=== PATIENT | male | born 1970 | race Caucasian/White ===

== ENCOUNTER 2021-06-26 14:06 | Emergency (ER) | payer OTHER ==
[~2021-06-26] VITALS: Ht 170.2 cm; Wt 82.0 kg
[~2021-06-26 14:06] MED LIST: CEPHALEXIN500 MG OR; CIPRODEX1 ML OT; CLINDAMYCIN150 MG PO; CLOTRIMAZOLE/BETAME1 EX; FLEXERIL PO; HYDROXYZ HCL25 MG PO; KURIC2 % EX; LISINOPRIL10 MG PO; NAPROSYN500 MG PO; NASONEX50 MCG/AC; NEXIUM20 M1 PO; NIZORAL2 % EX; OMEPRAZOLE40 MG PO; PRILOSEC20 MG PO; SINGULAIR PO; SINGULAIR10 MG PO; SOLU-MEDROL125 MG IM; ULTRAVATE0.051 EX; ZITHROMAX250 MG PO; ZITHROMAX500 MG PO; ZYRTEC10 M2 PO
[2021-06-26 14:56] LABS: HEMATOCRIT 50.3 % (39.0-50.0); HEMOGLOBIN 16.8 g/dl (14.0-18.0); IMMATURE GRANULOCYTES 0.8 % (0.0-5.0); MEAN CELL VOLUME 91.8 fL CALC (80.0-100.0); MEAN CORPUSCULAR HGB 30.7 pG CALC (26.0-32.0); MEAN CORPUSCULAR HGB CONC 33.4 g/dL CAL (32.0-36.0); NEUT# 5.58 thou/uL (1.82-7.42); RED BLOOD COUNT 5.48 mill/uL (4.70-6.10); RED CELL DISTRI WIDTH 11.8 % (11.5-15.5)
[2021-06-26 15:14] LABS: ALBUMIN 4.6 g/dL (3.2-5.0); ALKALINE PHOSPHATASE 84 u/l (38-126); AMYLASE 82 u/l (30-110); ANION GAP 16 (6-22 (CALC)); BILIRUBIN, TOTAL 0.8 mg/dL (0.0-1.4); BUN 23 mg/dL (9-20); BUN/CREATININE RATIO 25 (12-20 (CALC)); CARBON DIOXIDE 27 mmol/l (22-30); CHLORIDE 99 mmol/l (95-108); CREATININE 0.9 mg/dL (0.7-1.3); GFR > 60 ML/MIN (>=60 (CALC)); GFR FOR AFR.AMER. > 60 ML/MIN (>=60 (CALC)); LIPASE 65 u/l (23-300); POTASSIUM 4.1 mmol/l (3.5-5.1); SGOT/AST 37 u/l (17-59); SODIUM 139 mmol/l (137-146); TOTAL PROTEIN 7.9 g/dL (6.3-8.2)
[2021-06-26 16:11] LABS: URINE BILIRUBIN - DIPSTICK NEGATIVE (NEGATIVE); URINE BLOOD DIPSTICK NEGATIVE (NEGATIVE); URINE COLOR YELLOW; URINE GLUCOSE - DIPSTICK NEGATIVE (NEGATIVE); URINE KETONE NEGATIVE (NEGATIVE); URINE LEUK ESTERASE NEGATIVE (NEGATIVE); URINE PROTEIN - DIPSTICK NEGATIVE (NEG-TRACE); URINE SPECIFIC GRAVITY >=1.030; URINE UROBILINOGEN - DIPSTICK 0.2 E.U./dL (0.2)
[2021-06-26 16:14] LABS: URINE NITRITE - DIPSTICK NEGATIVE (Negative)
[2021-06-26] MEDS ORDERED: METRONIDAZOLE500 MG PO ×2 (17:09→17:18)
[2021-06-26] MEDS ORDERED: CIPROFLOXACN500 MG PO ×2 (17:09→17:18)
[2021-06-26 17:11] VITALS: BP 127/62
== END 2021-06-26 17:11 | disposition home or self-care (01) | DRG 392 ==
LOC: ED 14:06
PROVIDERS: Emergency Medicine
DX: R10.30 Lower abdominal pain, unspecified (principal); K62.5 Hemorrhage of anus and rectum; I10 Essential (primary) hypertension
CPT/HCPCS: Q9967

== ENCOUNTER 2021-08-16 08:26 | Day surgery (SDC) | payer OTHER ==
[~2021-08-16] VITALS: Ht 172.7 cm; Wt 81.6 kg
[~2021-08-16 08:26] MED LIST changes: +CIPROFLOXACN500 MG PO; +METRONIDAZOLE500 MG PO; +TAMSULOSIN HCL0.4 MG PO
[2021-08-16 10:58] VITALS: BP 96/62
== END 2021-08-16 10:35 | disposition home or self-care (01) | DRG 395 ==
LOC: ENDO 08:26 → ORM 10:15 → ENDO 10:35 → ORM 11:00
PROVIDERS: ATTEND Surgery
PROC: 0DJD8ZZ Inspection of Lower Intestinal Tract, Via Natural or Artificial Opening Endoscopic (ICD-10-PCS; principal; 2021-08-16)
DX: K64.8 Other hemorrhoids (principal); I10 Essential (primary) hypertension

== ENCOUNTER 2022-03-30 08:20 | Day surgery (SDC) | payer OTHER ==
[~2022-03-30] VITALS: Ht 165.1 cm; Wt 78.9 kg
[~2022-03-30 08:20] MED LIST changes: +CARAFATE PO; +NEXIUM 24HR20 M1; +TRAMADOL HCL50 MG PO
[2022-03-30] MEDS ORDERED: CIPROFLOXACN500 MG PO (10:45)
[2022-03-30] MEDS ORDERED: PERCOCET 5/321 COMBO PO (10:46)
[2022-03-30 13:23] VITALS: BP 114/72
[2022-04-05] MEDS ORDERED: PERCOCET 5/321 COMBO PO (10:44)
[2022-04-05] MEDS ORDERED: OMEPRAZOLE20 MG PO (10:44)
== END 2022-03-30 12:35 | disposition home or self-care (01) | DRG 355 ==
LOC: ORM 08:20
PROVIDERS: ATTEND Surgery
PROC: 0WQF0ZZ Repair Abdominal Wall, Open Approach (ICD-10-PCS; principal; 2022-03-30)
PROC: 0DB68ZX Excision of Stomach, Via Natural or Artificial Opening Endoscopic, Diagnostic (ICD-10-PCS; 2022-03-30)
DX: K42.9 Umbilical hernia without obstruction or gangrene (principal); K21.9 Gastro-esophageal reflux disease without esophagitis; K31.7 Polyp of stomach and duodenum; I10 Essential (primary) hypertension; N50.89 Other specified disorders of the male genital organs; Z87.11 Personal history of peptic ulcer disease
CPT/HCPCS: J0131

== ENCOUNTER 2022-06-09 09:34 | Emergency (ER) | payer OTHER ==
[~2022-06-09] VITALS: Ht 170.2 cm; Wt 80.2 kg
[~2022-06-09 09:34] MED LIST changes: +OMEPRAZOLE20 MG PO; +PERCOCET 5/321 COMBO PO
[2022-06-09 10:10] LABS: BASO% 0.4 % (0-3); EOS% 0.6 % (0-8); HEMATOCRIT 51.2 % (39.0-50.0); HEMOGLOBIN 17.1 g/dl (14.0-18.0); IMMATURE GRANULOCYTES 1.5 % (0.0-5.0); MEAN CELL VOLUME 91.6 fL CALC (80.0-100.0); MEAN CORPUSCULAR HGB 30.6 pG CALC (26.0-32.0); MEAN CORPUSCULAR HGB CONC 33.4 g/dL CAL (32.0-36.0); MONO% 7.2 % (2-13); NEUT# 4.47 thou/uL (1.82-7.42); NEUT% 65.3 % (42-76); RED BLOOD COUNT 5.59 mill/uL (4.70-6.10); RED CELL DISTRI WIDTH 11.9 % (11.5-15.5)
[2022-06-09 10:21] LABS: ALBUMIN 5.3 g/dL (3.2-5.0); ALKALINE PHOSPHATASE 71 u/l (38-126); ANION GAP 12 (6-22 (CALC)); BILIRUBIN, TOTAL 1.1 mg/dL (0.2-1.3); BUN 17 mg/dL (9-20); BUN/CREATININE RATIO 19 (12-20 (CALC)); CARBON DIOXIDE 30 mmol/l (22-30); CHLORIDE 98 mmol/l (95-108); CREATININE 0.9 mg/dL (0.7-1.3); GFR FOR AFR.AMER. > 60 ML/MIN (>=60 (CALC)); GFR OTHER RACES > 60 ML/MIN (>=60 (CALC)); LIPASE 96 u/l (23-300); POTASSIUM 4.3 mmol/l (3.5-5.1); SGOT/AST 32 u/l (17-59); SODIUM 136 mmol/l (137-146); TOTAL PROTEIN 8.2 g/dL (6.3-8.2)
[2022-06-09] MEDS ORDERED: CARAFATE PO (11:54)
[2022-06-09] MEDS ORDERED: PROTONIX40 M4 PO (11:54)
[2022-06-09 12:01] VITALS: BP 117/63
[2022-06-09 12:28] LABS: URINE BILIRUBIN - DIPSTICK NEGATIVE (NEGATIVE); URINE BLOOD DIPSTICK NEGATIVE (NEGATIVE); URINE CLARITY CLEAR; URINE COLOR YELLOW; URINE GLUCOSE - DIPSTICK NEGATIVE (NEGATIVE); URINE KETONE NEGATIVE (NEGATIVE); URINE LEUK ESTERASE TRACE (Negative); URINE NITRITE - DIPSTICK NEGATIVE (Negative); URINE PH 6.5 (4.5-8.0); URINE PROTEIN - DIPSTICK NEGATIVE (NEG-TRACE); URINE SPECIFIC GRAVITY <=1.005; URINE UROBILINOGEN - DIPSTICK 0.2 E.U./dL (0.2)
== END 2022-06-09 12:56 | disposition home or self-care (01) | DRG 392 ==
LOC: ED 09:34
PROVIDERS: Emergency Medicine
DX: K21.9 Gastro-esophageal reflux disease without esophagitis (principal); I10 Essential (primary) hypertension; Z79.899 Other long term (current) drug therapy

== ENCOUNTER 2022-11-16 07:30 | Emergency (ER) | payer OTHER ==
[~2022-11-16] VITALS: Ht 171.4 cm; Wt 78.0 kg
[2022-11-16] VITALS (8 sets, daily range): BP systolic 118–136; BP diastolic 73–89
[~2022-11-16 07:30] MED LIST changes: +LANSOPRAZOLE30 MG PO; +PROTONIX40 M4 PO
[2022-11-16] MEDS ORDERED: ZYRTEC10 MG PO (07:41)
[2022-11-16] MEDS ORDERED: NEXIUM40 M1 PO (07:41)
[2022-11-16 08:24] LABS: URINE BILIRUBIN - DIPSTICK NEGATIVE (NEGATIVE); URINE BLOOD DIPSTICK NEGATIVE (NEGATIVE); URINE COLOR YELLOW; URINE GLUCOSE - DIPSTICK NEGATIVE (NEGATIVE); URINE KETONE NEGATIVE (NEGATIVE); URINE LEUK ESTERASE NEGATIVE (NEGATIVE); URINE PROTEIN - DIPSTICK NEGATIVE (NEG-TRACE); URINE SPECIFIC GRAVITY 1.015; URINE UROBILINOGEN - DIPSTICK 0.2 E.U./dL (0.2)
[2022-11-16 08:27] LABS: BASO% 0.7 % (0-3); EOS% 2.7 % (0-8); HEMATOCRIT 50.1 % (39.0-50.0); HEMOGLOBIN 16.5 g/dl (14.0-18.0); IMMATURE GRANULOCYTES 1.2 % (0.0-5.0); LYMPH% 26.3 % (15-41); MEAN CELL VOLUME 90.6 fL CALC (80.0-100.0); MEAN CORPUSCULAR HGB 29.8 pG CALC (26.0-32.0); MEAN CORPUSCULAR HGB CONC 32.9 g/dL CAL (32.0-36.0); MONO% 8.6 % (2-13); NEUT# 3.61 thou/uL (1.82-7.42); NEUT% 60.5 % (42-76); RED BLOOD COUNT 5.53 mill/uL (4.70-6.10); RED CELL DISTRI WIDTH 12.2 % (11.5-15.5)
[2022-11-16 08:30] LABS: URINE NITRITE - DIPSTICK NEGATIVE (Negative)
[2022-11-16 08:42] LABS: ALBUMIN 4.5 g/dL (3.2-5.0); ALKALINE PHOSPHATASE 82 u/l (38-126); AMYLASE 67 u/l (30-110); ANION GAP 13 (6-22 (CALC)); BILIRUBIN, TOTAL 0.7 mg/dL (0.2-1.3); BUN 11 mg/dL (9-20); BUN/CREATININE RATIO 11 (12-20 (CALC)); CARBON DIOXIDE 30 mmol/l (22-30); CHLORIDE 100 mmol/l (95-108); CREATININE 0.9 mg/dL (0.7-1.3); GFR FOR AFR.AMER. > 60 ML/MIN (>=60 (CALC)); GFR OTHER RACES > 60 ML/MIN (>=60 (CALC)); LIPASE 57 u/l (23-300); POTASSIUM 3.6 mmol/l (3.5-5.1); SGOT/AST 34 u/l (17-59); SODIUM 140 mmol/l (137-146); TOTAL PROTEIN 7.5 g/dL (6.3-8.2)
== END 2022-11-16 11:29 | disposition home or self-care (01) | DRG 392 ==
LOC: ED 07:30
PROVIDERS: Family Medicine
DX: K59.00 Constipation, unspecified (principal); I10 Essential (primary) hypertension; K21.9 Gastro-esophageal reflux disease without esophagitis
CPT/HCPCS: S0164

== ENCOUNTER 2022-12-10 17:08 | Emergency (ER) | payer OTHER ==
[~2022-12-10] VITALS: Ht 171.4 cm; Wt 78.0 kg
[~2022-12-10 17:08] MED LIST changes: +NEXIUM40 M1 PO; +ZYRTEC10 MG PO
[2022-12-10 17:30] VITALS: BP 132/79
[2022-12-10 17:41] LABS: BASO% 0.5 % (0-3); EOS% 1.8 % (0-8); HEMOGLOBIN 17.6 g/dl (14.0-18.0); IMMATURE GRANULOCYTES 0.8 % (0.0-5.0); LYMPH% 23.6 % (15-41); MEAN CELL VOLUME 90.2 fL CALC (80.0-100.0); MEAN CORPUSCULAR HGB 29.4 pG CALC (26.0-32.0); MEAN CORPUSCULAR HGB CONC 32.6 g/dL CAL (32.0-36.0); MONO% 6.7 % (2-13); NEUT# 5.3 thou/uL (1.82-7.42); NEUT% 66.6 % (42-76); RED BLOOD COUNT 5.99 mill/uL (4.70-6.10); RED CELL DISTRI WIDTH 12.2 % (11.5-15.5)
[2022-12-10 17:45] VITALS: BP 126/82
[2022-12-10 17:53] LABS: ALKALINE PHOSPHATASE 87 u/l (38-126); ANION GAP 16 (6-22 (CALC)); BUN 14 mg/dL (9-20); BUN/CREATININE RATIO 12 (12-20 (CALC)); CARBON DIOXIDE 26 mmol/l (22-30); CHLORIDE 101 mmol/l (95-108); CREATININE 1.2 mg/dL (0.7-1.3); GFR FOR AFR.AMER. > 60 ML/MIN (>=60 (CALC)); GFR OTHER RACES > 60 ML/MIN (>=60 (CALC)); POTASSIUM 4.1 mmol/l (3.5-5.1); SGOT/AST 32 u/l (17-59); SODIUM 138 mmol/l (137-146); TOTAL PROTEIN 8.5 g/dL (6.3-8.2)
[2022-12-10 17:58] LABS: BILIRUBIN, TOTAL 1.4 mg/dL (0.2-1.3)
[2022-12-10 18:00] VITALS: BP 123/80
[2022-12-10] MEDS ORDERED: DIFICID200 MG PO (18:09)
[2022-12-10 18:15] VITALS: BP 117/80
== END 2022-12-10 18:22 | disposition home or self-care (01) | DRG 373 ==
LOC: ED 17:08
PROVIDERS: Family Medicine
DX: A04.72 Enterocolitis due to Clostridium difficile, not specified as recurrent (principal); I10 Essential (primary) hypertension